=== PATIENT | male | born 1995 | race Caucasian/White ===

== ENCOUNTER 2016-08-28 01:10 | Emergency (ER) | payer OTHER ==
[~2016-08-28] VITALS: Ht 175.3 cm; Wt 67.3 kg
[2016-08-28 01:14] VITALS: Ht 175.3 cm; Wt 67.3 kg
[2016-08-28] MEDS ORDERED: LORAZEPAM 2 MG/ML 1 ML VIAL IV STA (01:25)
[2016-08-28] MEDS ORDERED: SODIUM CHLORIDE 0.9% 1000ML 1,000 ML IV ONE (01:30)
[2016-08-28 01:45] VITALS: O2SAT 99
[2016-08-28] MEDS ORDERED: EPP3/2 IM (01:51)
[2016-08-28] MEDS ORDERED: ACET-1256 PO (01:51)
[2016-08-28 01:59] LABS: BASO % 0.1 %; BASO ABS # 0.01 K/uL (0-0.2); COMPLETE YES; EOS % 0.8 %; HEMATOCRIT 45.4 % (42-52); IG% 0.1 %; LYMPH % 5.1 %; LYMPH ABS # 0.44 K/uL (1.2-3.4); MEAN CELL VOLUME 89.2 fL (80-100); MEAN CORPUSCULAR HGB CONC 34.8 g/dl (32-36); MEAN PLATELET VOLUME 9.6 fL (7.4-10.4); MONO % 10.5 %; NEUT % 83.4 %; PLATELET COUNT 218 K/uL (130-400); RED BLOOD COUNT 5.09 M/uL (4.7-6.1); WHITE BLOOD COUNT 8.57 K/uL (4.8-10.8)
[2016-08-28 02:44] LABS: URINE APPEARANCE CLEAR (CLEAR); URINE BILIRUBIN NEG (NEG); URINE COLOR YELLOW; URINE NITRITE NEG (NEG); URINE PH 6.5 (4.5-7.5); URINE SPECIFIC GRAVITY 1.024 (1.000-1.030); UROBILINOGEN NEG (NEG); ZZUR CULT IF INDIC CLEAN CATCH NO
[2016-08-28 02:48] LABS: ALB/GLOB RATIO 1.3 (0.9-2); BUN/CREATININE RATIO 16.9 (10-20); CALCIUM 9.4 mg/dl (8.5-10.1); CREATININE 1.1 mg/dl (0.60-1.40)
[2016-08-28 02:49] LABS: MANUAL MICROSCOPIC REQUIRED? NO; REVIEW REQ? NO
[2016-08-28 02:52] LABS: LYME DISEASE AB IGG NEG (NEG); LYME DISEASE AB IGM NEG (NEG)
[2016-08-28 02:55] LABS: MAGNESIUM 2.1 mg/dl (1.8-2.4)
[2016-08-28 03:04] LABS: BENZODIAZEPINE, URINE NEG (NEG); COCAINE,URINE NEG (NEG); PHENCYCLIDINE, URINE NEG (NEG)
[2016-08-28] MEDS ORDERED: KETOROLAC TROMETHAMINE 30 MG/ML VIAL IV STA (03:17)
[2016-08-28 04:02] VITALS: BP 112/49; PULSE 96; TEMP 37.1; O2SAT 98
[2016-08-28] MEDS ORDERED: ATIVAN 1MG HOMEPACK PO ONE (04:45)
--- NOTE | 2016-08-28 06:01 | EMERGENCY ROOM VISIT NOTE ---
History First contact with patient: 01:21 Chief Complaint: HEAD INJURY (MINOR) Stated Complaint: CONCUSSION,NAUSEA,SHAKING FEVER History of Present Illness The patient is a 21 year old male who presents to the Emergency Room with complaints of headache symptoms for the past week. The patient states that he had a head injury last week and has been following with [facility] for the concussion. The patient has had nausea tonight and shakes. He does not report fever or chills. No chest pain, chest tightness, shortness of breath, neck pain, or abdominal pain. He has not taken anything over-the- counter for his symptoms and rates his discomfort a 7/10. The patient denies drug or alcohol use. He is having episodes of spasm in his abdomen and chest, similar to a hiccup, which he feels is causing him nausea. These symptoms began about 30 minutes ago. The patient considers himself otherwise usually healthy. Review of Systems More than 10 systems were reviewed and otherwise negative with the exception of history of present illness. Past Medical/Surgical History No chronic medical disease Family History No pertinent family history Social History Smoking Status: Never Smoker Occupation Status: [employer] student Current/Historical Medications Scheduled PRN Acetaminophen (Tylenol), 1,000 MG PO Q4 PRN for Pain Epinephrine (Epipen), 0.3 MG IM UD PRN for ALLERGIC REACTION Allergies Coded Allergies: BEE STING (Verified Allergy, Severe, ANAPHYLAXIS, 08/28/16) Physical Exam Vital Signs Date Time Temp Pulse Resp B/P Pulse Ox O2 Delivery O2 Flow Rate FiO2 08/28/16 04:02 37.1 96 18 112/49 98 08/28/16 03:38 117 23 98 08/28/16 03:35 112/49 08/28/16 03:31 69/46 08/28/16 03:23 110 30 97 08/28/16 03:08 121 26 99 08/28/16 03:00 117/57 08/28/16 02:53 113 25 98 08/28/16 02:38 113 24 98 08/28/16 02:33 128/89 08/28/16 02:31 132/78 08/28/16 02:25 112 18 97 Room Air 08/28/16 02:15 154/77 08/28/16 02:10 107 30 100 Room Air 08/28/16 02:10 112 08/28/16 01:46 135/87 08/28/16 01:45 99 Room Air 08/28/16 01:42 154/82 08/28/16 01:14 37.1 136 18 149/68 100 Room Air Pain Rating (0-10): 2.0 Physical Exam VITALS: Vitals are noted on the nurse's note and reviewed by myself. Vital signs stable. GENERAL: Well-developed, well-nourished, white male, who is in no acute distress and resting comfortably. Patient is cooperative with the examination. The patient is with intermittent spasm like motion in his abdomen. HEAD: Normocephalic atraumatic. EARS: External ear normal. External auditory canals clear, tympanic membranes pearly rutledge without erythema or effusion bilaterally. EYES: Pupils equal round and reactive to light and accommodation. Conjunctivae are injected. EOMI. NOSE: Patent, turbinates without inflammation or discharge. MOUTH: Mucous membranes moist. Tonsils are not enlarged. Pharynx without erythema, blood, or exudate. Uvula midline. Airway patent. NECK: Supple without nuchal rigidity. No lymphadenopathy. No thyromegaly. Cervical spine is nontender. HEART: Regular rate and rhythm without murmurs gallops or rubs. LUNGS: Clear to auscultation bilaterally without wheezes, rales or rhonchi. No retractions or accessory muscle use. ABDOMEN: Positive normal bowel sounds x 4. Soft, nontender, without masses or organomegaly. No guarding or rebound tenderness. MUSCULOSKELETAL: No muscle atrophy, erythema, or edema noted. Full range of motion without joint tenderness in all extremities. NEURO: Patient was alert and oriented to person place and time. CN II through XII grossly intact. Deep tendon reflexes 2+ throughout. No focal neurological deficits. SKIN: The skin was without rashes, erythema, edema, or bruising. Capillary reflex less than 2 seconds. Medical Decision & Procedures ER Provider Diagnostic Interpretation: Preliminary Findings Only See Final Report For Complete Findings CT HEAD: Motion artifact. No obvious acute intracranial abnormality. Partially visualized paranasal sinuses and mastoid air cells are clear Laboratory Results 08/28/16 01:37 Red Blood Count 5.09, Mean Corpuscular Volume 89.2, Mean Corpuscular Hemoglobin 31.0, Mean Corpuscular Hemoglobin Concent 34.8, Mean Platelet Volume 9.6, Neutrophils (%) (Auto) 83.4, Lymphocytes (%) (Auto) 5.1, Monocytes (%) (Auto) 10.5, Eosinophils (%) (Auto) 0.8, Basophils (%) (Auto) 0.1, Neutrophils # (Auto ) 7.14, Lymphocytes # (Auto) 0.44, Monocytes # (Auto) 0.90, Eosinophils # (Auto ) 0.07, Basophils # (Auto) 0.01 08/28/16 01:37 Test 08/28/16 01:37 08/28/16 02:20 White Blood Count 8.57 K/uL (4.8-10.8) Red Blood Count 5.09 M/uL (4.7-6.1) Hemoglobin 15.8 g/dL (14.0-18.0) Hematocrit 45.4 % (42-52) Mean Corpuscular Volume 89.2 fL (80-100) Mean Corpuscular Hemoglobin 31.0 pg (25-34) Mean Corpuscular Hemoglobin Concent 34.8 g/dl (32-36) Platelet Count 218 K/uL (130-400) Mean Platelet Volume 9.6 fL (7.4-10.4) Neutrophils (%) (Auto) 83.4 % Lymphocytes (%) (Auto) 5.1 % Monocytes (%) (Auto) 10.5 % Eosinophils (%) (Auto) 0.8 % Basophils (%) (Auto) 0.1 % Neutrophils # (Auto) 7.14 K/uL (1.4-6.5) Lymphocytes # (Auto) 0.44 K/uL (1.2-3.4) Monocytes # (Auto) 0.90 K/uL (0.11-0.59) Eosinophils # (Auto) 0.07 K/uL (0-0.5) Basophils # (Auto) 0.01 K/uL (0-0.2) RDW Standard Deviation 41.4 fL (36.4-46.3) RDW Coefficient of Variation 12.7 % (11.5-14.5) Immature Granulocyte % (Auto) 0.1 % Immature Granulocyte # (Auto) 0.01 K/uL (0.00-0.02) Anion Gap 3.0 mmol/L (3-11) Est Creatinine Clear Calc Drug Dose 102.0 ml/min Estimated GFR () 111.4 Estimated GFR (Non- 96.1 BUN/Creatinine Ratio 16.9 (10-20) Calcium Level 9.4 mg/dl (8.5-10.1) Magnesium Level 2.1 mg/dl (1.8-2.4) Total Bilirubin 0.4 mg/dl (0.2-1) Aspartate Amino Transf (AST/SGOT) 11 U/L (15-37) Alanine Aminotransferase (ALT/SGPT) 25 U/L (12-78) Alkaline Phosphatase 53 U/L (45-117) Total Protein 7.9 gm/dl (6.4-8.2) Albumin 4.5 gm/dl (3.4-5.0) Globulin 3.4 gm/dl (2.5-4.0) Albumin/Globulin Ratio 1.3 (0.9-2) Ethyl Alcohol mg/dL < 3.0 mg/dl (0-3) Lyme Disease IgG Antibody NEG (NEG) Lyme Disease IgM Antibody NEG (NEG) Urine Color YELLOW Urine Appearance CLEAR (CLEAR) Urine pH 6.5 (4.5-7.5) Urine Specific [place] 1.024 (1.000-1.030) Urine Protein NEG (NEG) Urine Glucose (UA) NEG (NEG) Urine Ketones NEG (NEG) Urine Occult Blood NEG (NEG) Urine Nitrite NEG (NEG) Urine Bilirubin NEG (NEG) Urine Urobilinogen NEG (NEG) Urine Leukocyte Esterase NEG (NEG) Urine Opiates Screen NEG (NEG) Urine Methadone, Qualitative NEG (NEG) Urine Barbiturates NEG (NEG) Urine Phencyclidine (PCP) Level NEG (NEG) Ur Amphetamine/Methamphetamine NEG (NEG) MDMA (Ecstasy) Screen NEG (NEG) Urine Benzodiazepines Screen NEG (NEG) Urine Cocaine Metabolite NEG (NEG) Urine Marijuana (THC) NEG (NEG) Medications Administered Medications (Trade) Dose Ordered Sig/Silvestre Route Start Time Stop Time Status Last Admin Dose Admin Lorazepam 1 mg 1 mg NOW STAT IV 08/28/16 01:25 08/28/16 01:27 DC 08/28/16 01:49 1 MG Sodium Chloride (Nss 1000ml) 1,000 ml @ 999 mls/hr Q1H1M ONCE IV 08/28/16 01:30 08/28/16 02:30 DC 08/28/16 01:48 999 MLS/HR Ketorolac Tromethamine (Toradol Inj) 30 mg NOW STAT IV 08/28/16 03:17 08/28/16 03:19 DC 08/28/16 03:52 30 MG ED Course Physical exam and history were performed. Nursing notes and EMR were reviewed. Patient appears to have headache symptoms for the past week after a concussion. Additionally the patient has a vague spasm that appear similar to a hiccup that began just prior to arrival. The patient's eyes are injected, but he denies drug and alcohol use. The patient certainly does not appear toxic. IV access was established and labs were obtained. He was given 1 mg IV Ativan and hydrated with normal saline. CT scan was performed. The patient blood work is as above and was reviewed. He does not have a significantly elevated white blood cell count, gross anemia, bandemia, or significant electrolyte imbalance. Transaminases are not diagnostic. Alcohol is negative. Drug of abuse screen is also negative. CT scan does not show acute abnormality. The patient did continue to have some headache symptoms and was given IV Toradol here in the department. The patient was monitored over the course of several hours here in the department. He had resolution of his spasms and improvement of his headache while here in the department. The patient denies drug and alcohol use, however he is not able to explain why his eyes were bloodshot today. He was visited several times by friends, who also had similar appearance. The patient does appear stable for discharge home, but will need to follow with neurology or a concussion clinic. The patient does not live locally and is going back home to [place] after the semester ends. The patient will be given copies of his CT scans. While the patient was here his father did arrive from [place], and I did speak with the father. The patient will be going home to [place] to follow-up back home. The patient will be given a home pack of Ativan to assist with symptoms of they return. The family was otherwise invited back to the ER with any new, worsening, or concerning symptoms. The chart was completed utilizing [employer] Voice Recognition Software. Grammatical errors, random word insertions, pronoun errors, and incomplete sentences are an occasional consequence of this system due to software limitations, ambient noise, and hardware issues. Any formal questions or concerns about the content, text, or information contained within the body of this dictation should be directly addressed to the provider for clarification. . Medical Decision Differential diagnosis: Etiologies such as concussion, contusion, fracture, subdural hematoma, epidural hematoma, intraparenchymal hemorrhage, as well as other traumatic pathologies were entertained. Impression Primary Impression: Post-concussion headache Additional Impression: Spasm Departure Information Dispostion Home / Self-Care Condition GOOD Forms HOME CARE DOCUMENTATION FORM, IMPORTANT VISIT INFORMATION Patient Instructions My [facility] Additional Instructions You were seen and evaluated today on an emergency basis only. This is not a substitute for, or an effort to provide, complete comprehensive medical care. It is not possible to recognize and treat all injuries or illnesses in a single emergency department visit. For this reason it is recommended that you followup with your primary care physician upon returning home. You may benefit from follow with neurology regarding your symptoms. For baseline pain relief you may alternate ibuprofen and acetaminophen every 4 hours for pain control. Take 600 mg ibuprofen (Advil) and then 4 hours later take 1000 mg acetaminophen (Tylenol). Do not take more than 3000 mg acetaminophen in a single day. Drink plenty of fluids and remain well hydrated. Avoid caffeine, nicotine, and alcohol as this can worsen your symptoms. You are welcome to return to the emergency department anytime with new, worsening, or concerning symptoms. Problem Qualifiers
--- NOTE | 2016-08-28 07:22 | DIAGNOSTIC IMAGING REPORT ---
CT SCAN OF THE BRAIN WITHOUT IV CONTRAST CLINICAL HISTORY: Concussion one week ago. COMPARISON STUDY: No priors. TECHNIQUE: Unenhanced axial CT scan of the brain is performed from the vertex to the skull base. Automated dose control exposure was utilized. There is no depressed calvarial fracture the skull base was scanned twice due to motion artifact. CT DOSE: 998.18 mGy.cm FINDINGS: Brain parenchyma: The brain parenchyma is normal in appearance. There is no hemorrhage, mass effect, or evidence of acute territorial ischemia by CT criteria. Velasquez-white matter is preserved. No extra-axial fluid collection is seen. Ventricles, sulci, cisterns: Normal in configuration. Intracranial vasculature: The visualized intracranial vasculature at the skull base is normal in appearance. Calvarium: Unremarkable. Sinuses and mastoids: The visualized paranasal sinuses are clear. The mastoid air cells are well pneumatized. Orbits: The bony orbits are grossly intact. IMPRESSION: No acute intracranial abnormality noting a motion degraded examination. Electronically signed by: Benjamin Knutson M.D. 08/28/2016 7:21 AM Dictated Date/Time: 08/28/2016 7:19 AM
== END 2016-08-28 04:03 | disposition home or self-care (01) ==
LOC: C.EDB 01:12
DX: F07.81 Postconcussional syndrome (principal); R51 Headache; R25.2 Cramp and spasm